=== PATIENT | male | born 1940 | race Caucasian/White ===

== ENCOUNTER 2018-06-16 04:04 | Observation (INO) ==
--- NOTE | 2018-06-16 04:25 | ED ---
HPI General Chief Complaint: Shortness of Breath/Dyspnea Stated Complaint: resp Time Seen by Provider: 06/16/18 04:22 Source: patient and EMS Mode of arrival: EMS History of Present Illness Patient has a history of COPD he was short of breath he was descending to 93 on room air he was coughing increased respiratory rate tachypneic paramedics transported him and in route gave him 2 duo nebs which improved his breathing he arrives coughing shaking somewhat and as well as he is having some subcostal muscle usage for breathing however he is able to talk in full sentences I asked him how he feels he said I feel much better than he did 20 minutes ago. Says is progressively getting worse of the last few days he denies upper respiratory infection denies any congestion no fever he has a home inhaler HFA albuterol but has no nebulizer .. he reports HFA was not alleviating his symptoms. he has not seen another doctor for this.. he feels tightness and wheezing in his chest and air hunger , progressively getting worse not responding to home treatments MD Complaint: Reports shortness of breath and cough Consistency/Duration: progressively worsening Relieving factors: nothing Exacerbating factors: coughing Associated symptoms: Reports cough and wheezing Treatment prior to arrival: Reports bronchodilator Related Data Home Medications Medication Instructions Recorded Confirmed albuterol sulfate 1.25 mg INHALATION QID PRN 06/16/18 06/16/18 Allergies Allergy/AdvReac Type Severity Reaction Status Date / Time Penicillins Allergy Hives Verified 06/16/18 04:07 Review of Systems ROS: all other systems reviewed are negative [facility] Medical History Medical History COPD (chronic obstructive pulmonary disease) (Acute) Hypertension (Acute) Surgical History Surgical History H/O knee surgery (Acute) Hx of tonsillectomy (Acute) Social History Social History Substance History: No History of Abuse Second Hand Smoke Exposure: No Smoking Status: Former smoker How Often Do You Have a Drink Containing Alcohol: Never Recent Travel in [facility] within the Last 8 Weeks: No Recent Out of Country Travel within the Last 8 Weeks: No Immunization History Tetanus Immunization: <5 Years Exam Narrative Exam Narrative: GENERAL: Patient appears tachypneic but able to speak in full sentences awake alert slightly tremulous SKIN: Warm and dry. HEAD: Atraumatic. Normocephalic. EYES: Pupils equal and round. No scleral icterus. No injection or drainage. ENT: No nasal bleeding or discharge. Mucous membranes pink and moist. NECK: Trachea midline. No JVD. CARDIOVASCULAR: Regular rate and rhythm. RESPIRATORY: + accessory muscle use. Patient has coarse breath sounds expiratory wheeze in the lower to mid lung peck that clear in upper lung peck. GASTROINTESTINAL: Abdomen soft, non-tender, nondistended. Hepatic and splenic margins not palpable. MUSCULOSKELETAL: Extremities without clubbing, cyanosis, or edema. No obvious deformities. NEUROLOGICAL: Awake and alert. No obvious cranial nerve deficits. Motor grossly within normal limits. Five out of 5 muscle strength in the arms and legs. Normal speech. PSYCHIATRIC: Appropriate mood and affect; insight and judgment normal. Course Initial Documented Vital Signs Temperature 98.5 F 06/16/18 04:06 Pulse Rate 99 H 06/16/18 04:06 Respiratory Rate 18 06/16/18 04:06 Blood Pressure 171/84 H 06/16/18 04:06 Pulse Oximetry 97 06/16/18 04:06 Last Documented Vital Signs Temperature 98.5 F 06/16/18 04:08 Pulse Rate 77 06/16/18 05:14 Respiratory Rate 18 06/16/18 05:14 Blood Pressure 120/68 06/16/18 04:55 Pulse Oximetry 97 06/16/18 04:58 Medical Decision Making MDM Narrative Medical decision making narrative: CXR negative trop EKG reviewed LEvaquin added to treament admit COPD exacerbation Medical Screen Exam Complete: Yes Emergency Medical Condition: Yes Differential Diagnosis Differential Diagnosis: copd CHF PNA PTX other Lab Data Result diagrams: 06/16/18 04:52 06/16/18 04:52 Lab Results 06/16/18 06/16/18 06/16/18 Range/Units 04:05 04:52 04:52 WBC 7.7 (4.0-11.0) th/mm3 RBC 4.37 L (4.50-5.90) mil/mm3 Hgb 13.6 (13.0-17.0) gm/dL Hct 40.4 (39.0-51.0) % MCV 92.4 (80.0-100.0) fL MCH 31.1 (27.0-34.0) pg MCHC 33.6 (32.0-36.0) % RDW 13.2 (11.6-17.2) % Plt Count 193 (150-450) th/mm3 MPV 8.8 (7.0-11.0) fL Neut % (Auto) 79.0 H (16.0-70.0) % Lymph % (Auto) 10.4 (9.0-44.0) % [place] % (Auto) 5.0 (0.0-8.0) % Eos % (Auto) 4.6 H (0.0-4.0) % Baso % (Auto) 1.0 (0.0-2.0) % Neut # (Auto) 6.1 (1.8-7.7) th/mm3 Lymph # (Auto) 0.8 L (1.0-4.8) th/mm3 [place] # (Auto) 0.4 (0.0-0.9) th/mm3 Eos # (Auto) 0.4 (0.0-0.4) th/mm3 Baso # (Auto) 0.1 (0.0-0.2) th/mm3 WBC Differential . Differential Comment Auto diff final Puncture Site Right radial Patient Temperature 98.6 O2 Saturation 94 (90-100) % ABG pH 7.44 H (7.380-7.420) ABG pCO2 37 L (38-42) mmHg ABG pO2 75 (61-120) mmHg ABG HCO3 24 (22-26) mmol/L ABG O2 Content 18.9 (12.0-20.0) Vol % ABG Base Excess 0.5 (-2-2) mmol/L ABG Methemoglobin 0.6 (0-2) % Jose Test Present Hemoglobin 14.3 (12.0-16.0) G/DL Carboxyhemoglobin 1.0 (0-4) % O2 Delivery Device Room air Inspired O2 21 % Critical Value No Sodium 140 (136-145) meq/L Potassium 4.0 (3.5-5.1) meq/L Chloride 106 (98-107) meq/L Carbon Dioxide 25.6 (21.0-32.0) meq/L Anion Gap 8 (5-15) meq/L BUN 22 H (7-18) mg/dL Creatinine 1.22 (0.60-1.30) mg/dL Estimated GFR 58 L (>89) mL/min Random Glucose 114 H (74-106) mg/dL Calcium 8.3 L (8.5-10.1) mg/dL Total Bilirubin 0.4 (0.2-1.0) mg/dL AST 14 L (15-37) U/L ALT 20 (12-78) U/L Alkaline Phosphatase 100 (45-117) U/L Troponin I 0.08 H (0.02-0.05) ng/mL Total Protein 6.9 (6.4-8.2) g/dL Albumin 3.0 L (3.4-5.0) g/dL Imaging Data Radiologist's impression: Chest X-Ray 06/16/18 04:25 CONCLUSION: No acute cardiopulmonary disease. Discharge Plan Discharge Disposition Patient Disposition: 30 Still Patient Physicians Team ED Provider: Seferino May Primary Care Provider: Bee Mcgee Rxs /Orders / Referrals /Forms Prescriptions: No Action albuterol sulfate 1.25 mg/3 mL Solution For Nebulization 1.25 mg INHALATION QID PRN (Reason: Respiratory Distress) RF: 0 Discharge Interventions Interventions: Vital Signs Last Done: 06/16/18 04:55 Status ED Status: With Doctor
[2018-06-16 05:00] LABS: ABG Base Excess 0.5 mmol/L (-2-2); ABG PCO2 37 mmHg (38-42); ABG PO2 75 mmHg (61-120)
--- NOTE | 2018-06-16 05:11 | XR ---
EXAM DATE: 06/16/2018 4:25 AM EDT AGE/SEX: 77 years / Male INDICATIONS: Dyspnea. CLINICAL DATA: This is the patient's initial encounter. Patient reports that signs and symptoms have been present for 1 day and indicates a pain score of 0/10. MEDICAL/SURGICAL HISTORY: Chronic obstructive pulmonary disease. None. COMPARISON: No prior exams available for comparison. FINDINGS: The cardiac silhouette is normal in transverse diameter. The aortic knob is prominent with tortuosity of the descending thoracic aorta. The lungs are free of acute parenchymal opacity. No pulmonary nod ules or pleural effusions are identified. The background interstitium is prominent though this is li clyde chronic in nature. CONCLUSION: No acute cardiopulmonary disease. Electronically signed by: Zeb Lindsey MD 06/16/2018 5:10 AM EDT
[2018-06-16 05:22] LABS: Baso # (Auto) 0.1 th/mm3 (0.0-0.2); Eos # (Auto) 0.4 th/mm3 (0.0-0.4); Eos % (Auto) 4.6 % (0.0-4.0); Hematocrit 40.4 % (39.0-51.0); Hemoglobin 13.6 gm/dL (13.0-17.0); Lymph # (Auto) 0.8 th/mm3 (1.0-4.8); Lymph % (Auto) 10.4 % (9.0-44.0); Mean Corpuscular HGB Conc 33.6 % (32.0-36.0); Mean Corpuscular Hemoglobin 31.1 pg (27.0-34.0); Mean Corpuscular Volume 92.4 fL (80.0-100.0); Mean Platelet Volume 8.8 fL (7.0-11.0); Mono # (Auto) 0.4 th/mm3 (0.0-0.9); Neut # (Auto) 6.1 th/mm3 (1.8-7.7); Platelet Count 193 th/mm3 (150-450); Red Blood Count 4.37 mil/mm3 (4.50-5.90); Red Cell Distribution Width 13.2 % (11.6-17.2); White Blood Count 7.7 th/mm3 (4.0-11.0)
[2018-06-16 05:34] LABS: Alanine Aminotransferase 20 U/L (12-78); Anion Gap 8 meq/L (5-15); Aspartate Aminotransferase 14 U/L (15-37); Blood Urea Nitrogen 22 mg/dL (7-18); Calcium 8.3 mg/dL (8.5-10.1); Carbon Dioxide 25.6 meq/L (21.0-32.0); Chloride 106 meq/L (98-107); Glomerular Filtration Rate 58 mL/min (>89); Glucose,Random 114 mg/dL (74-106); Sodium 140 meq/L (136-145)
[2018-06-16 05:38] LABS: Alkaline Phosphatase 100 U/L (45-117); Total Protein 6.9 g/dL (6.4-8.2); Troponin I 0.08 ng/mL (0.02-0.05)
--- NOTE | 2018-06-16 07:54 | P.HP ---
<Dianna Garcia - Last Filed: 06/16/18 08:34> History of Present Illness Primary Care Physician: Bee Mcgee MD Chief Complaint: Shortness of breath History of Present Illness: This is a 77-year-old male patient with past medical history which includes COPD , CVA, hypertension, hyperlipidemia, hypothyroidism, tremors, ETOH and tobacco abuse until 6 weeks ago. Patient presents to emergency department with shortness of breath. Patient reports woke up this early this AM and was unable to breath. Patient reports he felt fine yesterday and offers no other complaints at this time. SOB improved significantly after duonebs given in ambulance. Patient reports this is consistent with his prior COPD exacerbations. Patient denies cough, sputum production, fevers, chills, nausea , vomiting, diarrhea, constipation or chest pain. Chest X-Ray 06/16/18 No acute cardiopulmonary disease. PMH: COPD, CVA, hypertension, hyperlipidemia, hypothyroidism and tremors PSxH: Tonsillectomy FMH: Reviewed and noncontributory Social history: Retired from significant other quit ETOH use 6 weeks ago, reports he was drinking 1/5 a day up until 6 weeks ago quit tobacco use 6 weeks ago, reports he was smoking 1/2 PPD up until 6 weeks. Patient smoked from age 12 until 77 - Diagnosis (1) COPD exacerbation Review of Systems All other systems reviewed negative except as stated in HPI [facility] - History History Provided By: [employer] / EMT - Medical History Medical History: Medical History (Last Updated 06/16/18 @ 04:12 by Amarilis Rosales RN) COPD (chronic obstructive pulmonary disease) Hypertension - Surgical History Surgical History: Surgical History (Last Updated 06/16/18 @ 04:12 by Amarilis Rosales RN) H/O knee surgery Hx of tonsillectomy - Tobacco History Second Hand Smoke Exposure: No Tobacco Use In Past 30 Days: No Smoking Status: Former smoker - Alcohol History How Often Do You Have a Drink Containing Alcohol: Never - Substance Use History Substance History: No History of Abuse - Travel History Recent Travel in the [place] Within the Last 8 Weeks: No Recent Travel Out of the Country Within the Last 8 Weeks: No - Immunization History Tetanus Immunization: <5 Years Medications and Allergies Allergies Allergy/AdvReac Type Severity Reaction Status Date / Time Penicillins Allergy Hives Verified 06/16/18 04:07 Home Medications Medication Instructions Recorded Confirmed Type albuterol sulfate 1.25 mg INHALATION QID PRN 06/16/18 06/16/18 History albuterol sulfate [Ventolin HFA] 2 puff INHALATION QID PRN 06/16/18 06/16/18 History amlodipine 5 mg PO BID 06/16/18 06/16/18 History aspirin 81 mg PO DAILY 06/16/18 06/16/18 History chlordiazepoxide HCl 5 mg PO Q12H 06/16/18 06/16/18 History furosemide 20 mg PO DAILY 06/16/18 06/16/18 History lisinopril 20 mg PO BID 06/16/18 06/16/18 History omeprazole 20 mg PO DAILY 06/16/18 06/16/18 History simvastatin 20 mg PO HS 06/16/18 06/16/18 History tramadol 50 mg PO TID PRN 06/16/18 06/16/18 History umeclidinium [Incruse Ellipta] 1 inh INHALATION DAILY 06/16/18 06/16/18 History Active Medications: Active Medications Al Hydroxide/Mg Hydroxide (Milk Of [employer] Liq) 30 ml PO Q12H PRN PRN Reason: Mild Constipation Albuterol (Duoneb Neb (Prn)) 1 ampul NEB Q2HR NEB PRN PRN Reason: SHORTNESS OF BREATH/WHEEZING Albuterol (Duoneb Neb (Ian)) 1 ampul NEB Q6HR WHILE AWAKE NEB IAN Clonidine HCl (Catapres) 0.2 mg PO Q6H PRN PRN Reason: SBP>160, DBP>90 Enoxaparin Sodium (Lovenox Inj) 30 mg SQ Q24H [facility] Methylprednisolone Sodium Succinate (Solumedrol Inj) 60 mg IV.PUSH Q6HR [facility] Ondansetron HCl (Zofran Inj) 4 mg IV.PUSH Q6H PRN PRN Reason: NAUSEA OR VOMITING Senna/Docusate Sodium (Mary-Colace) 1 tab PO BID [facility] Exam Vital signs: Vital Signs 06/16/18 04:06 06/16/18 04:08 06/16/18 04:55 Temperature 98.5 F 98.5 F Pulse Rate 99 H 110 H 95 H Respiratory Rate 18 18 18 Blood Pressure 171/84 H 171/84 H 120/68 Pulse Oximetry 97 96 97 06/16/18 04:58 06/16/18 05:14 06/16/18 06:42 Temperature Pulse Rate 77 74 Respiratory Rate 18 18 Blood Pressure 123/76 Pulse Oximetry 97 96 Intake & Output 06/15/18 06/16/18 06/16/18 18:59 06:59 18:59 Weight 72.575 kg Narrative: GENERAL: This is a well-nourished, well-developed patient, in no apparent distress. CARDIOVASCULAR: Regular rate and rhythm RESPIRATORY: poor air movement throughout with expiratory wheezes BLL GASTROINTESTINAL: Abdomen soft, non-tender, nondistended. Normal active bowel sounds MUSCULOSKELETAL: Extremities without clubbing, cyanosis, or edema. NEURO: Alert & Oriented x4 to person, place, time, situation. Moves all ext x4 Results - Labs CBC & Chem 7: 06/16/18 04:52 06/16/18 04:52 Labs: Laboratory Results - last 24 hr 06/16/18 06/16/18 06/16/18 04:05 04:52 04:52 WBC 7.7 RBC 4.37 L Hgb 13.6 Hct 40.4 MCV 92.4 MCH 31.1 MCHC 33.6 RDW 13.2 Plt Count 193 MPV 8.8 Neut % (Auto) 79.0 H Lymph % (Auto) 10.4 Jack % (Auto) 5.0 Eos % (Auto) 4.6 H Baso % (Auto) 1.0 Neut # (Auto) 6.1 Lymph # (Auto) 0.8 L Jack # (Auto) 0.4 Eos # (Auto) 0.4 Baso # (Auto) 0.1 WBC Differential . Differential Comment Auto diff final Puncture Site Right radial Patient Temperature 98.6 O2 Saturation 94 ABG pH 7.44 H ABG pCO2 37 L ABG pO2 75 ABG HCO3 24 ABG O2 Content 18.9 ABG Base Excess 0.5 ABG Methemoglobin 0.6 Jose Test Present Hemoglobin 14.3 Carboxyhemoglobin 1.0 O2 Delivery Device Room air Inspired O2 21 Critical Value No Sodium 140 Potassium 4.0 Chloride 106 Carbon Dioxide 25.6 Anion Gap 8 BUN 22 H Creatinine 1.22 Estimated GFR 58 L Random Glucose 114 H Calcium 8.3 L Total Bilirubin 0.4 AST 14 L ALT 20 Alkaline Phosphatase 100 Troponin I 0.08 H Total Protein 6.9 Albumin 3.0 L - Imaging Impressions Chest X-Ray 06/16/18 04:25 CONCLUSION: No acute cardiopulmonary disease. Caprini VTE Risk Assessment Caprini VTE Risk Assessment: Moderate/High Risk (score >= 2) Caprini Risk Assessment Model: Point Value = 1 Point Value = 2 Point Value = 3 Point Value = 5 Age 41-60 Minor surgery BMI > 25 kg/m2 Swollen legs Varicose veins or History of unexplained or recurrent spontaneous Oral contraceptives or hormone replacement Sepsis (< 1 month) Serious lung disease, including pneumonia (< 1 month) Abnormal pulmonary function Acute myocardial infarction Congestive heart failure (< 1 month) History of inflammatory bowel disease Medical patient at bed rest Age 61-74 Arthroscopic surgery Major open surgery (> 45 min) Laparoscopic surgery (> 45 min) Malignancy Confined to bed (> 72 hours) Immobilizing plaster cast Central venous access Age >= 75 History of VTE Family history of VTE Factor V Leiden Prothrombin 21329T Lupus anticoagulant Anticardiolipin antibodies Elevated serum homocysteine Heparin-induced thrombocytopenia Other congenital or acquired thrombophilia Stroke (< 1 month) Elective arthroplasty Hip, pelvis, or leg fracture Acute spinal cord injury (< 1 month) Prophylaxis Regimen: Total Risk Factor Score Risk Level Prophylaxis Regimen 0-1 Low Early ambulation 2 Moderate Order ONE of the following: *Sequential Compression Device (SCD) *Heparin 5000 units SQ BID 3-4 Higher Order ONE of the following medications: *Heparin 5000 units SQ TID *Enoxaparin/Lovenox 40 mg SQ daily (WT < 150 kg, CrCl > 30 mL/min) *Enoxaparin/Lovenox 30 mg SQ daily (WT < 150 kg, CrCl > 10-29 mL/min) *Enoxaparin/Lovenox 30 mg SQ BID (WT < 150 kg, CrCl > 30 mL/min) AND/OR *Sequential Compression Device (SCD) 5 or more Highest Order ONE of the following medications: *Heparin 5000 units SQ TID (Preferred with Epidurals) *Enoxaparin/Lovenox 40 mg SQ daily (WT < 150 kg, CrCl > 30 mL/min) *Enoxaparin/Lovenox 30 mg SQ daily (WT < 150 kg, CrCl > 10-29 mL/min) *Enoxaparin/Lovenox 30 mg SQ BID (WT < 150 kg, CrCl > 30 mL/min) AND *Sequential Compression Device (SCD) Assessment and Plan - Assessment (1) COPD exacerbation Code(s): J44.1 - Chronic obstructive pulmonary disease with (acute) exacerbation Status: Acute Plan: This is a 77-year-old male patient with past medical history which includes COPD , CVA, hypertension, hyperlipidemia, hypothyroidism, tremors, ETOH and tobacco abuse until 6 weeks ago. Patient presents to emergency department with shortness of breath. Patient reports woke up this early this AM and was unable to breath. Patient reports he felt fine yesterday and offers no other complaints at this time. SOB improved significantly after duonebs given in ambulance. Patient reports this is consistent with his prior COPD exacerbations. Patient denies cough, sputum production, fevers, chills, nausea , vomiting, diarrhea, constipation or chest pain. COPD exacerbation Chest X-Ray 06/16/18 No acute cardiopulmonary disease Continue patient's home Incruse Ellipta Duo nebs every 6 hours while awake and as needed Solu-Medrol 60 mg IV every 6 hours Consult physical therapy Hypertension Continue patient's home amlodipine 5 mg p.o. twice daily and lisinopril 20 mg p.o. twice daily Hyperlipidemia Continue patient's home simvastatin 20 mg p.o. nightly GERD Continue patient's home omeprazole 20 mg p.o. daily DVT prophylaxis SCDs and Lovenox <Daryl Quinn - Last Filed: 06/16/18 15:51> History of Present Illness Primary Care Physician: Bee Mcgee MD - Diagnosis (1) COPD exacerbation [facility] - Medical History Medical History: Medical History (Last Updated 06/16/18 @ 04:12 by Amarilis Rosales RN) COPD (chronic obstructive pulmonary disease) Hypertension - Surgical History Surgical History: Surgical History (Last Updated 06/16/18 @ 04:12 by Amarilis Rosales RN) H/O knee surgery Hx of tonsillectomy Medications and Allergies Active Medications: Active Medications Al Hydroxide/Mg Hydroxide (Milk Of [employer] Liq) 30 ml PO Q12H PRN PRN Reason: Mild Constipation Albuterol (Duoneb Neb (Prn)) 1 ampul NEB Q2HR NEB PRN PRN Reason: SHORTNESS OF BREATH/WHEEZING Albuterol (Duoneb Neb (Ian)) 1 ampul NEB Q6HR WHILE AWAKE NEB [facility] Last Admin: 06/16/18 12:56 Dose: 1 ampul Amlodipine Besylate (Norvasc) 5 mg PO BID [facility] Last Admin: 06/16/18 11:04 Dose: 5 mg Aspirin (Ecotrin) 81 mg PO DAILY [facility] Last Admin: 06/16/18 11:04 Dose: 81 mg Chlordiazepoxide (Librium) 5 mg PO Q12H [facility] Last Admin: 06/16/18 11:03 Dose: 5 mg Clonidine HCl (Catapres) 0.2 mg PO Q6H PRN PRN Reason: SBP>160, DBP>90 Enoxaparin Sodium (Lovenox Inj) 30 mg SQ Q24H [facility] Last Admin: 06/16/18 11:02 Dose: 30 mg Furosemide (Lasix) 20 mg PO DAILY [facility] Last Admin: 06/16/18 11:03 Dose: 20 mg Lisinopril (Prinivil) 20 mg PO BID [facility] Last Admin: 06/16/18 11:04 Dose: 20 mg Methylprednisolone Sodium Succinate (Solumedrol Inj) 60 mg IV.PUSH Q6HR [facility] Last Admin: 06/16/18 11:08 Dose: 60 mg Ondansetron HCl (Zofran Inj) 4 mg IV.PUSH Q6H PRN PRN Reason: NAUSEA OR VOMITING Pantoprazole Sodium (Protonix) 20 mg PO DAILY [facility] Last Admin: 06/16/18 11:04 Dose: 20 mg Patient Own Medication: Incruse Ellipta ( Umeclidinium) 62. 5mcg/Inhalation 0 each INH DAILY [facility] Pravastatin Sodium (Pravachol) 40 mg PO HS [facility] Senna/Docusate Sodium (Mary-Colace) 1 tab PO BID [facility] Last Admin: 06/16/18 11:02 Dose: 1 tab Sodium Chloride (Ns Flush) 2 ml IV.FLUSH BID [facility] Sodium Chloride (Ns Flush) 2 ml IV.FLUSH PRN PRN PRN Reason: FLUSH AFTER USING IV ACCESS Exam Vital signs: Vital Signs 06/16/18 04:06 06/16/18 04:08 06/16/18 04:55 Temperature 98.5 F 98.5 F Pulse Rate 99 H 110 H 95 H Respiratory Rate 18 18 18 Blood Pressure 171/84 H 171/84 H 120/68 Pulse Oximetry 97 96 97 06/16/18 04:58 06/16/18 05:14 06/16/18 06:42 Temperature Pulse Rate 77 74 Respiratory Rate 18 18 Blood Pressure 123/76 Pulse Oximetry 97 96 06/16/18 07:52 06/16/18 08:00 06/16/18 12:00 Temperature 98.5 F 98.0 F Pulse Rate 99 H 110 H 90 Respiratory Rate 18 20 18 Blood Pressure 171/84 H 144/70 H Pulse Oximetry 98 97 97 06/16/18 12:56 Temperature Pulse Rate 90 Respiratory Rate 18 Blood Pressure Pulse Oximetry Intake & Output 06/15/18 06/16/18 06/16/18 18:59 06:59 18:59 Intake Total 150 / 150 Balance 150 / 150 Weight 72.575 kg 69.4 kg Intake: IV 150 / 150 Levaquin 750 mg Premix Inj 150 150 / 150 ML @ 100 mls/hr IV.SIG ONCE ONE Rx#:[id number] Other: Weight On Admission 69.4 kg Results - Labs CBC & Chem 7: 06/16/18 04:52 06/16/18 04:52 Labs: Laboratory Results - last 24 hr 06/16/18 06/16/18 06/16/18 04:05 04:52 04:52 WBC 7.7 RBC 4.37 L Hgb 13.6 Hct 40.4 MCV 92.4 MCH 31.1 MCHC 33.6 RDW 13.2 Plt Count 193 MPV 8.8 Neut % (Auto) 79.0 H Lymph % (Auto) 10.4 Jack % (Auto) 5.0 Eos % (Auto) 4.6 H Baso % (Auto) 1.0 Neut # (Auto) 6.1 Lymph # (Auto) 0.8 L Jack # (Auto) 0.4 Eos # (Auto) 0.4 Baso # (Auto) 0.1 WBC Differential . Differential Comment Auto diff final Puncture Site Right radial Patient Temperature 98.6 O2 Saturation 94 ABG pH 7.44 H ABG pCO2 37 L ABG pO2 75 ABG HCO3 24 ABG O2 Content 18.9 ABG Base Excess 0.5 ABG Methemoglobin 0.6 Jose Test Present Hemoglobin 14.3 Carboxyhemoglobin 1.0 O2 Delivery Device Room air Inspired O2 21 Critical Value No Sodium 140 Potassium 4.0 Chloride 106 Carbon Dioxide 25.6 Anion Gap 8 BUN 22 H Creatinine 1.22 Estimated GFR 58 L Random Glucose 114 H Calcium 8.3 L Total Bilirubin 0.4 AST 14 L ALT 20 Alkaline Phosphatase 100 Troponin I 0.08 H Total Protein 6.9 Albumin 3.0 L - Imaging Impressions Chest X-Ray 06/16/18 04:25 CONCLUSION: No acute cardiopulmonary disease. Caprini VTE Risk Assessment Caprini Risk Assessment Model: Point Value = 1 Point Value = 2 Point Value = 3 Point Value = 5 Age 41-60 Minor surgery BMI > 25 kg/m2 Swollen legs Varicose veins or History of unexplained or recurrent spontaneous Oral contraceptives or hormone replacement Sepsis (< 1 month) Serious lung disease, including pneumonia (< 1 month) Abnormal pulmonary function Acute myocardial infarction Congestive heart failure (< 1 month) History of inflammatory bowel disease Medical patient at bed rest Age 61-74 Arthroscopic surgery Major open surgery (> 45 min) Laparoscopic surgery (> 45 min) Malignancy Confined to bed (> 72 hours) Immobilizing plaster cast Central venous access Age >= 75 History of VTE Family history of VTE Factor V Leiden Prothrombin 12529P Lupus anticoagulant Anticardiolipin antibodies Elevated serum homocysteine Heparin-induced thrombocytopenia Other congenital or acquired thrombophilia Stroke (< 1 month) Elective arthroplasty Hip, pelvis, or leg fracture Acute spinal cord injury (< 1 month) Prophylaxis Regimen: Total Risk Factor Score Risk Level Prophylaxis Regimen 0-1 Low Early ambulation 2 Moderate Order ONE of the following: *Sequential Compression Device (SCD) *Heparin 5000 units SQ BID 3-4 Higher Order ONE of the following medications: *Heparin 5000 units SQ TID *Enoxaparin/Lovenox 40 mg SQ daily (WT < 150 kg, CrCl > 30 mL/min) *Enoxaparin/Lovenox 30 mg SQ daily (WT < 150 kg, CrCl > 10-29 mL/min) *Enoxaparin/Lovenox 30 mg SQ BID (WT < 150 kg, CrCl > 30 mL/min) AND/OR *Sequential Compression Device (SCD) 5 or more Highest Order ONE of the following medications: *Heparin 5000 units SQ TID (Preferred with Epidurals) *Enoxaparin/Lovenox 40 mg SQ daily (WT < 150 kg, CrCl > 30 mL/min) *Enoxaparin/Lovenox 30 mg SQ daily (WT < 150 kg, CrCl > 10-29 mL/min) *Enoxaparin/Lovenox 30 mg SQ BID (WT < 150 kg, CrCl > 30 mL/min) AND *Sequential Compression Device (SCD) Assessment and Plan - Assessment (1) COPD exacerbation Code(s): J44.1 - Chronic obstructive pulmonary disease with (acute) exacerbation Status: Acute Plan: The exam, history, and the medical decision-making described in the above note were completed with the assistance of the mid-level provider. I reviewed and agree with the findings presented. I attest that I had a [id number] encounter with the patient on the same day, and personally performed and documented my assessment and findings in the medical record. copd exacerbation. improving. dc home in AM
[2018-06-16] MEDS ORDERED: Sodium Chloride 0.9% 2 ML Flush PRN IV.FLUSH (10:53)
[2018-06-16] MEDS: Enoxaparin Inj 30 MG/0.3 ML Syringe SQ SCH (11:02)
[2018-06-16] MEDS: Senna/Docusate Sodium 8.6/50 MG Tablet PO SCH ×2 (11:02→21:21)
[2018-06-16] MEDS: Furosemide 20 MG Tablet PO SCH (11:03)
[2018-06-16] MEDS: amLODIPine 5 MG Tablet PO SCH ×2 (11:04→21:21)
[2018-06-16] MEDS: Pantoprazole Sodium 20 MG DR Tablet PO SCH (11:04)
[2018-06-16] MEDS: Lisinopril 20 MG Tablet PO SCH ×2 (11:04→21:21)
[2018-06-16] MEDS: MethylPREDNISolone Sod Succinate Inj 125 MG/2 ML Vial IV.PUSH SCH ×3 (11:08→23:42)
[2018-06-16] MEDS ORDERED: INCRUSE ELLIPTA INH SCH (12:00)
[2018-06-16] MEDS: Sodium Chloride 0.9% 2 ML Flush BID IV.FLUSH SCH (21:20)
[2018-06-17] MEDS: MethylPREDNISolone Sod Succinate Inj 125 MG/2 ML Vial IV.PUSH SCH (05:23)
--- NOTE | 2018-06-17 07:31 | P.DCO ---
- Diagnosis (1) COPD exacerbation Status: Acute - Physical Therapy Order: Evaluate and treat - Home Health Nursing Order: Medical education, Signs/symptoms of disease process, Oxygen administration education, Medication education-adverse effect, Nursing assessment with vital signs - Legal Internship Order: To evaluate: Living conditions/environment, Support services Order: To provide: Long range planning - Case Management Consult Yes - Certification I have seen patient Benson Campoverde on 06/17/18. My clinical findings support the need for the requested home health care services because: Patient has SOB I certify that my clinical findings support that this patient is homebound because: Hx COPD - exertion dyspnea/weakness
[2018-06-17 07:38] LABS: Baso % (Auto) 0.1 % (0.0-2.0); Hematocrit 40.1 % (39.0-51.0); Hemoglobin 13.2 gm/dL (13.0-17.0); Lymph # (Auto) 0.7 th/mm3 (1.0-4.8); Lymph % (Auto) 6.5 % (9.0-44.0); Mean Corpuscular HGB Conc 32.8 % (32.0-36.0); Mean Corpuscular Hemoglobin 30.7 pg (27.0-34.0); Mean Corpuscular Volume 93.7 fL (80.0-100.0); Mean Platelet Volume 9.1 fL (7.0-11.0); Mono # (Auto) 0.2 th/mm3 (0.0-0.9); Mono % (Auto) 1.8 % (0.0-8.0); Neut # (Auto) 9.7 th/mm3 (1.8-7.7); Neut % (Auto) 91.6 % (16.0-70.0); Platelet Count 195 th/mm3 (150-450); Red Blood Count 4.28 mil/mm3 (4.50-5.90); Red Cell Distribution Width 12.9 % (11.6-17.2); White Blood Count 10.5 th/mm3 (4.0-11.0)
[2018-06-17] MEDS: Enoxaparin Inj 30 MG/0.3 ML Syringe SQ SCH (07:51)
--- NOTE | 2018-06-17 08:14 | P.PNIM ---
Subjective Interval history: follow up COPD exacerbation: Patient on RA this AM reports that he felt that his breathing was better on oxygen Denies SOB/cough at this time Physical Exam Vital signs: Vital Signs 06/16/18 12:00 06/16/18 12:56 06/16/18 16:00 Temperature 98.0 F 97.9 F Pulse Rate 90 90 89 Respiratory Rate 18 18 18 Blood Pressure 144/70 H 143/70 H Pulse Oximetry 97 97 06/16/18 20:00 06/16/18 20:03 06/16/18 20:04 Temperature 98.2 F Pulse Rate 85 89 Respiratory Rate 19 18 Blood Pressure 156/72 H Pulse Oximetry 95 96 06/16/18 21:51 06/17/18 00:00 06/17/18 01:00 Temperature 97.8 F Pulse Rate 106 H 89 Respiratory Rate 19 Blood Pressure 191/77 H Pulse Oximetry 95 96 06/17/18 04:00 06/17/18 06:00 06/17/18 07:55 Temperature 97.9 F 97.7 F Pulse Rate 77 65 64 Respiratory Rate 18 12 Blood Pressure 120/58 L 113/61 Pulse Oximetry 93 L 96 Intake & Output 06/16/18 06/17/18 06/17/18 18:59 06:59 18:59 Intake Total 150 / 150 Output Total 1630 / 1630 Balance 150 / 150 -1630 / -1630 Weight 69.4 kg 69.4 kg Intake: IV 150 / 150 Levaquin 750 mg Premix Inj 150 150 / 150 ML @ 100 mls/hr IV.SIG ONCE ONE Rx#:[id number] Output: Urine 1630 / 1630 Other: Date of Last Bowel Movement 06/15/18 06/15/18 Weight On Admission 69.4 kg Narrative: GENERAL: This is a well-nourished, well-developed patient, in no apparent distress. CARDIOVASCULAR: Regular rate and rhythm RESPIRATORY: clear through out, no use of accessory muscles GASTROINTESTINAL: Abdomen soft, non-tender, nondistended. Normal active bowel sounds MUSCULOSKELETAL: Extremities without clubbing, cyanosis, or edema. NEURO: Alert & Oriented x4 to person, place, time, situation. Moves all ext x4 Results - Labs CBC & Chem 7: 06/17/18 06:00 06/17/18 06:00 Laboratory Results - last 24 hr 06/17/18 06:00 WBC 10.5 RBC 4.28 L Hgb 13.2 Hct 40.1 MCV 93.7 MCH 30.7 MCHC 32.8 RDW 12.9 Plt Count 195 MPV 9.1 Neut % (Auto) 91.6 H Lymph % (Auto) 6.5 L [place] % (Auto) 1.8 Eos % (Auto) 0.0 Baso % (Auto) 0.1 Neut # (Auto) 9.7 H Lymph # (Auto) 0.7 L [place] # (Auto) 0.2 Eos # (Auto) 0.0 Baso # (Auto) 0.0 WBC Differential . Differential Comment Auto diff final Assessment and Plan - Assessment (1) COPD exacerbation Code(s): J44.1 - Chronic obstructive pulmonary disease with (acute) exacerbation Status: Acute Plan: This is a 77-year-old male patient with past medical history which includes COPD , CVA, hypertension, hyperlipidemia, hypothyroidism, tremors, ETOH and tobacco abuse until 6 weeks ago. Patient presents to emergency department with shortness of breath. Patient reports woke up this early this AM and was unable to breath. Patient reports he felt fine yesterday and offers no other complaints at this time. SOB improved significantly after duonebs given in ambulance. Patient reports this is consistent with his prior COPD exacerbations. Patient denies cough, sputum production, fevers, chills, nausea , vomiting, diarrhea, constipation or chest pain. COPD exacerbation Chest X-Ray 06/16/18 No acute cardiopulmonary disease Continue patient's home Incruse Ellipta Duo nebs every 6 hours while awake and as needed Solu-Medrol 60 mg IV every 6 hours -> taper Consult physical therapy, recommending home with home PT Patient on RA this AM reports that he felt that his breathing was better on oxygen walk test requested Hypertension Continue patient's home amlodipine 5 mg p.o. twice daily and lisinopril 20 mg p.o. twice daily Hyperlipidemia Continue patient's home simvastatin 20 mg p.o. nightly GERD Continue patient's home omeprazole 20 mg p.o. daily DVT prophylaxis SCDs and Lovenox walk test completed patient does not qualify for home oxygen Plan to DC home later today in stable condition on heart healthy diet with [facility] nursing and PT DC home in on steroid taper with DuoNebs
[2018-06-17 08:17] LABS: Calcium 9.2 mg/dL (8.5-10.1); Potassium 4.5 meq/L (3.5-5.1)
[2018-06-17] MEDS: Furosemide 20 MG Tablet PO SCH (08:21)
[2018-06-17] MEDS: Pantoprazole Sodium 20 MG DR Tablet PO SCH (08:21)
[2018-06-17] MEDS: amLODIPine 5 MG Tablet PO SCH (08:21)
[2018-06-17] MEDS: Lisinopril 20 MG Tablet PO SCH (08:21)
[2018-06-17] MEDS: Senna/Docusate Sodium 8.6/50 MG Tablet PO SCH (08:22)
[2018-06-17] MEDS: Sodium Chloride 0.9% 2 ML Flush BID IV.FLUSH SCH (08:22)
[2018-06-17] MEDS ORDERED: MethylPREDNISolone Sod Succinate Inj 125 MG/2 ML Vial IV.PUSH SCH (09:00)
--- NOTE | 2018-06-17 09:43 | XR ---
EXAM DATE: 06/17/2018 8:00 AM EDT AGE/SEX: 77 years / Male INDICATIONS: . Short of breath. CLINICAL DATA: This is the patient's subsequent encounter. Patient reports that signs and symptoms h ave been present for 2 days and indicates a pain score of 0/10. MEDICAL/SURGICAL HISTORY: Chronic obstructive pulmonary disease. None. COMPARISON: [facility] [place], CHEST 1V SINGLE AP, 06/16/2018. . FINDINGS: No significant new focal pleural or parenchymal opacities. The cardiomediastinal contours are unremar kable. Osseous structures are intact. CONCLUSION: 1. No acute abnormality or significant interval change. Electronically signed by: Bhavesh Carey MD 06/17/2018 9:42 AM EDT
[2018-06-17 11:59] VITALS: BP 105/59; RESP 20; TEMP 97.6; O2SAT 94
[2018-06-17 12:18] VITALS: PULSE 74
== END 2018-06-17 17:15 | disposition home health service (06) ==
LOC: NEDA 04:04 → NEPE 04:04 → NEDA 08:34 → NEPGCP 08:35
PROVIDERS: ADMIT Hospitalist; ATTEND Hospitalist